=== PATIENT | female | born 1950 | race Caucasian/White ===

== ENCOUNTER 2023-05-10 16:05 | Emergency (ER) | payer MEDICAID, MEDICARE ==
[~2023-05-10] VITALS: Ht 157.5 cm; Wt 106.8 kg
[~2023-05-10 16:05] MED LIST: DOCU-348 PO; HYDR-3927 PO; LISI5TAB22 PO; LORA10TA7 PO; METF500T PO; OMEP20CA15 PO; SIMV-42 PO; TRAZ-251 PO; VENL-190 PO
[2023-05-10] MEDS ORDERED: HYDROcodone/acetaminophen 5mg/325mg tablet PO ONE (17:15)
[2023-05-10] MEDS ORDERED: acetaminophen 325mg tablet PO ONE (17:20)
[2023-05-10] MEDS ORDERED: ATOR20TA66 PO (17:32)
[2023-05-10 18:14] VITALS: RESP 18; TEMP 97.8
[2023-05-10 19:15] VITALS: BP 175/95; PULSE 88; O2SAT 86
== END 2023-05-10 19:59 | disposition home or self-care (01) ==
LOC: ER 16:05
DX: S42.292A Other displaced fracture of upper end of left humerus, initial encounter for closed fracture (principal); Z88.5 Allergy status to narcotic agent; Z88.8 Allergy status to other drugs, medicaments and biological substances; Z79.899 Other long term (current) drug therapy; W18.39XA Other fall on same level, initial encounter; Y93.89 Activity, other specified; Y92.89 Other specified places as the place of occurrence of the external cause; Y99.8 Other external cause status
CPT/HCPCS: 73030; 73200; 99284; A4565